=== PATIENT | male | born 1955 | race Caucasian/White ===

== ENCOUNTER 2018-07-16 11:52 | Emergency (ER) | payer MEDICARE ==
[2018-07-16] MEDS ORDERED: Rabies Vaccine Human 2.5 UNITS VIAL ONE (12:09)
[2018-07-16] MEDS ORDERED: Adacel (T-DAP) 0.5 ML SYRINGE ONE (12:09)
[2018-07-16] MEDS ORDERED: HYDROcodone/Acetaminophen 5/325 mg Tablet ONE (12:35)
== END 2018-07-16 12:54 | disposition home or self-care (01) ==
LOC: SCSER 11:52
DX: S61.052A Open bite of left thumb without damage to nail, initial encounter (principal); I10 Essential (primary) hypertension; F17.200 Nicotine dependence, unspecified, uncomplicated; Z79.899 Other long term (current) drug therapy; W55.51XA Bitten by raccoon, initial encounter
CPT/HCPCS: 90376; 90471; 90472; 90675; 90715; 96372

== ENCOUNTER → 2018-07-19 | Day surgery (SDC) | payer MEDICARE ==
[~2018-07-19] MED LIST: Rabies Vaccine Human 2.5 UNITS VIAL ONE
== END ==
LOC: SCSER/OP 09:50
PROVIDERS: ATTEND Emergency Medicine
DX: Z29.14 Encounter for prophylactic rabies immune globulin (principal)
CPT/HCPCS: 90471; 90675